=== PATIENT | female | born 1990 | race Caucasian/White ===

== ENCOUNTER 2017-08-13 17:08 | Emergency (ER) | payer OTHER ==
[~2017-08-13] VITALS: Ht 162.6 cm; Wt 99.8 kg
[~2017-08-13 17:08] MED LIST: ACEBUTCAFT; ALBU90OI INH; AMOX500 PO; ANTIEMETIC; Acetaminophen-1 EAC1 PO; Augmentin 875-1 EACH PO; BCP; BCP'S; BIRTH CONTROL; CEPH500 PO; CIPR250 PO; CIPRO500 MG PO; CITA20 PO; CODGUAEL PO; CYCL10 PO; Cipro500 MG PO; FISH OIL; FISH1000 PO; FLINTSTONE VITAMINS PO; FOLI1 PO; Flomax0.4 MG PO; Flonase 0.05% N16 GM; HYDACE5 PO; LABE100 PO; LEVFLO250 PO; META800 PO; MULVITMINE PO; NAPR220; NAPR550 PO; NORINYL; Norco 5-325 Ta1 EACH PO; OXYACE5T PO; PHENA100 PO; PHENA200 PO; PRED20 PO; PROM25 PO; Percocet 5-3251 EACH PO; Pyridium100 MG PO; Pyridium200 MG PO; SULTRIDS PO; Seasonique 0.11 EACH PO; Sudogest30 MG PO; Zofran Odt4 MG SL; [UNRECOGNIZED DRUG - CODE]; [UNRECOGNIZED DRUG - OTHER]
[2017-08-13] MEDS ORDERED: PROM25 PO (19:07)
== END 2017-08-13 19:15 | disposition home or self-care (01) ==
LOC: ER 17:08
DX: R51 Headache (principal); Z88.2 Allergy status to sulfonamides; Z88.8 Allergy status to other drugs, medicaments and biological substances; Z91.048 Other nonmedicinal substance allergy status; F17.210 Nicotine dependence, cigarettes, uncomplicated
CPT/HCPCS: 70450; 96372; 99284; J0780; J1200; J1885

== ENCOUNTER → 2019-06-01 | Outpatient (CLI) | payer OTHER ==
[2019-06-01 16:51] LABS: U Amphetamine Screen DETECTED; U Barbituate Screen Not Detected; U Benzodiazapine Screen Not Detected; U Buprenorphine Screen Not Detected; U Cannabinoids Screen Not Detected; U Cocaine Screen Not Detected; U Methadone Screen Not Detected; U Methamphetamine Screen Not Detected; U Opiates Screen Not Detected; U Oxycodone Screen Not Detected; U Propoxyphene Screen Not Detected
== END ==
LOC: OLS 15:10 → LAB SHORT 15:10
PROVIDERS: Nurse Practitioner Psychiatric/Mental Health
DX: F90.2 Attention-deficit hyperactivity disorder, combined type (principal)

== ENCOUNTER → 2019-12-14 | Outpatient (CLI) | payer OTHER ==
[~2019-12-14] MED LIST changes: +AMPDEX30CR PO; +BUPR75 PO; +TAMS.4ER PO; +TOPI100 PO
[2019-12-14 13:50] LABS: U Amphetamine Screen DETECTED; U Barbituate Screen Not Detected; U Benzodiazapine Screen Not Detected; U Buprenorphine Screen Not Detected; U Cannabinoids Screen Not Detected; U Cocaine Screen Not Detected; U Methadone Screen Not Detected; U Methamphetamine Screen Not Detected; U Opiates Screen Not Detected; U Oxycodone Screen Not Detected; U Phencyclidine Screen Not Detected; U Propoxyphene Screen Not Detected
== END | disposition home or self-care (01) ==
LOC: OLS 12:43 → LAB SHORT 12:43
PROVIDERS: Nurse Practitioner Psychiatric/Mental Health
DX: F90.0 Attention-deficit hyperactivity disorder, predominantly inattentive type (principal)

== ENCOUNTER → 2019-12-21 | Outpatient (CLI) | payer OTHER ==
[2019-12-21 17:38] LABS: Source, Urine Clean Catch
[2019-12-21 18:28] LABS: Appearance, Urine Clear (Clear); Bilirubin, Urine Neg (Neg); Blood, Urine Neg (Neg); Color, Urine Yellow (P-Yellow); Glucose Qualitative, Urine Neg (Neg); Ketones, Urine Neg (Neg); Leukocyte Esterase, Urine Neg (Neg); Nitrite, Urine Neg (Neg); Protein, Urine Neg (Neg); Specific Gravity, Urine 1.015 (1.003-1.022); Urobilinogen, Urine NORM (Normal)
== END | disposition home or self-care (01) ==
LOC: LAB SHORT 17:36 → LAB 17:36
PROVIDERS: Nurse Practitioner Family
DX: N20.1 Calculus of ureter (principal); R30.0 Dysuria
CPT/HCPCS: 81003

== ENCOUNTER 2022-05-24 11:35 | Day surgery (SDC) | payer OTHER ==
[~2022-05-24] VITALS: Ht 162.6 cm; Wt 83.5 kg
[2022-05-24] MEDS ORDERED: ESZO1 PO (12:19)
[2022-05-24] MEDS ORDERED: SUMA25 PO (12:19)
--- NOTE | 2022-05-24 16:26 | NUR ---
05/24/22 1626 Nolberto Pratt PT REPORTED 5/10 PAIN PRIOR TO DISCHARGE. HOWEVER, SHE STATED PAIN WAS AT A TOLERABLE LEVEL FOR RETURNING HOME AND REFUSED FURTHER PAIN MEDICATION.
== END 2022-05-24 16:17 | disposition home or self-care (01) ==
LOC: ORSCSDS 11:35
PROVIDERS: Orthopaedic Surgery
PROC: 0LN50ZZ Release Right Lower Arm and Wrist Tendon, Open Approach (ICD-10-PCS; principal; 2022-05-24 13:00)
DX: M65.4 Radial styloid tenosynovitis [de Quervain] (principal); Z87.891 Personal history of nicotine dependence; Z86.16 Personal history of COVID-19; F90.9 Attention-deficit hyperactivity disorder, unspecified type; F32.A Depression, unspecified; Z79.899 Other long term (current) drug therapy
CPT/HCPCS: A9270; J0690; J1100; J1885; J2001; J2405; J2704; J2795; J3010; J7120

== ENCOUNTER → 2023-10-21 | Outpatient (CLI) | payer OTHER ==
[~2023-10-21] MED LIST changes: +ESZO1 PO; +SUMA25 PO
== END ==
LOC: LAB SHORT 18:15 → LAB 18:15
DX: R30.0 Dysuria (principal)
CPT/HCPCS: 87077; 87086; 87186

== ENCOUNTER 2024-01-10 21:53 | Emergency (ER) | payer OTHER ==
[~2024-01-10] VITALS: Ht 162.6 cm; Wt 90.7 kg
[2024-01-10] MEDS ORDERED: Ondansetron HCl 2 MG / ML 2ML Vial IV ONE (22:15)
[2024-01-10] MEDS ORDERED: Ketorolac Tromethamine 30mg Vial IV ONE (22:15)
[2024-01-10 22:41] LABS: BASOPHILS ABSOLUTE AUTO 0.07 K/mm3 (0.00-0.23); BASOPHILS PERCENT AUTO 1 % (0-2); EOSINOPHILS ABSOLUTE AUTO 0.09 K/mm3 (0.00-0.68); EOSINOPHILS PERCENT AUTO 1 % (0-6); Hematocrit 42.7 % (33.0-51.0); Hemoglobin 14.8 g/dL (11.5-16.0); IMMATURE GRAN ABSOLUTE AUTO 0.03 K/mm3 (0.00-0.10); IMMATURE GRAN PERCENT AUTO 0 % (0-1); LYMPHOCYTES ABSOLUTE AUTO 3.25 K/mm3 (0.84-5.20); LYMPHOCYTES PERCENT AUTO 35 % (21-46); MONOCYTES ABSOLUTE AUTO 0.68 K/mm3 (0.16-1.47); MONOCYTES PERCENT AUTO 7 % (4-13); Mean Corpuscular HGB 30.8 pg (26.0-34.0); Mean Corpuscular HGB Conc 34.7 g/dL (31.5-36.5); Mean Corpuscular Volume 89 fL (80-100); Mean Platelet Volume 9.3 fL (9.1-12.4); NEUTROPHILS ABSOLUTE AUTO 5.15 K/mm3 (1.96-9.15); NEUTROPHILS PERCENT AUTO 56 % (41-73); Platelet Count 308 K/mm3 (150-400); RDW Standard Deviation 39.4 fL (35.1-46.3); White Blood Cell Count 9.27 K/mm3 (4.00-11.30)
[2024-01-10 22:52] LABS: Source, Urine Clean Catch
[2024-01-10 22:55] LABS: Appearance, Urine Hazy (Clear); Bilirubin, Urine Neg (Neg); Blood, Urine Neg (Neg); Color, Urine Yellow (P-Yellow); Glucose Qualitative, Urine Neg (Neg); Ketones, Urine Neg (Neg); Leukocyte Esterase, Urine 2+ (Neg); Nitrite, Urine Neg (Neg); Protein, Urine Neg (Neg); Specific Gravity, Urine 1.015 (1.003-1.022); Urobilinogen, Urine NORM (Normal); pH, Urine 6.5 (5.0-8.0)
[2024-01-10 23:06] LABS: Amorphous Mod (0-Heavy); Bacteria Mod /hpf; Red Blood Cells, Urine 0-2 /hpf (0-2); Squamous Epithelial Cells Mod /hpf (Few)
[2024-01-10 23:09] LABS: Albumin, Blood 3.7 g/dL (3.4-5.0); Albumin/Globulin Ratio 1.1 (0.8-1.8); Bilirubin, Total 0.3 mg/dL (0.1-1.0); Bun/Creatinine Ratio 17.4 (12.0-20.0); Calcium, Blood 8.9 mg/dL (8.5-10.1); Creatinine, Blood 0.86 mg/dL (0.40-1.00); Globulin, Blood 3.3 g/dL (2.2-4.0); Potassium, Blood 3.5 mmol/L (3.5-5.5)
[2024-01-11] MEDS ORDERED: Ondansetron HCl 2 MG / ML 2ML Vial IV ONE (00:05)
[2024-01-11] MEDS ORDERED: Ondansetron HCl 2 MG / ML 2ML Vial ONE (00:05)
[2024-01-11] MEDS ORDERED: RX Prepack 2 Tabs Ondansetron ODT 4MG UD ONE (02:30)
[2024-01-11] MEDS ORDERED: NITR100CA PO (02:33)
[2024-01-11] MEDS ORDERED: ONDA4ODT MM (02:33)
[2024-01-11 02:45] VITALS: BP 117/78
== END 2024-01-11 02:46 | disposition home or self-care (01) ==
LOC: ER 21:53
PROVIDERS: Physician Assistant
DX: N83.201 Unspecified ovarian cyst, right side (principal); N39.0 Urinary tract infection, site not specified; G43.909 Migraine, unspecified, not intractable, without status migrainosus; F17.210 Nicotine dependence, cigarettes, uncomplicated; Z79.899 Other long term (current) drug therapy; Z88.1 Allergy status to other antibiotic agents; Z91.048 Other nonmedicinal substance allergy status
CPT/HCPCS: 74177; 80053; 81001; 81025; 85025; 87077; 87086; 87186; 96374-59; 96375; 96376; 99284-25; A9270; J1885; J2405; Q9967

== ENCOUNTER 2024-06-07 17:23 | Emergency (ER) | payer OTHER ==
[~2024-06-07] VITALS: Ht 162.6 cm; Wt 91.2 kg
[~2024-06-07 17:23] MED LIST changes: +NITR100CA PO; +ONDA4ODT MM
[2024-06-07 17:57] LABS: Source, Urine Clean Catch
[2024-06-07 18:02] LABS: Appearance, Urine Clear (Clear); Bilirubin, Urine Neg (Neg); Blood, Urine Neg (Neg); Color, Urine Yellow (P-Yellow); Glucose Qualitative, Urine Neg (Neg); Ketones, Urine Neg (Neg); Leukocyte Esterase, Urine Neg (Neg); Nitrite, Urine Neg (Neg); Protein, Urine Neg (Neg); Specific Gravity, Urine 1.015 (1.003-1.022); Urobilinogen, Urine NORM (Normal); pH, Urine 6.5 (5.0-8.0)
[2024-06-07 18:38] LABS: BASOPHILS ABSOLUTE AUTO 0.07 K/mm3 (0.00-0.23); BASOPHILS PERCENT AUTO 1 % (0-2); EOSINOPHILS ABSOLUTE AUTO 0.08 K/mm3 (0.00-0.68); EOSINOPHILS PERCENT AUTO 1 % (0-6); Hematocrit 44.1 % (33.0-51.0); Hemoglobin 15.3 g/dL (11.5-16.0); IMMATURE GRAN ABSOLUTE AUTO 0.03 K/mm3 (0.00-0.10); IMMATURE GRAN PERCENT AUTO 0 % (0-1); LYMPHOCYTES ABSOLUTE AUTO 2.06 K/mm3 (0.84-5.20); LYMPHOCYTES PERCENT AUTO 22 % (21-46); MONOCYTES ABSOLUTE AUTO 0.58 K/mm3 (0.16-1.47); MONOCYTES PERCENT AUTO 6 % (4-13); Mean Corpuscular HGB 31.1 pg (26.0-34.0); Mean Corpuscular HGB Conc 34.7 g/dL (31.5-36.5); Mean Corpuscular Volume 90 fL (80-100); Mean Platelet Volume 9.4 fL (9.1-12.4); NEUTROPHILS ABSOLUTE AUTO 6.54 K/mm3 (1.96-9.15); NEUTROPHILS PERCENT AUTO 70 % (41-73); Platelet Count 313 K/mm3 (150-400); RDW Coefficient Variation 11.8 % (11.7-14.2); RDW Standard Deviation 38.6 fL (35.1-46.3); Red Blood Cell Count 4.92 M/mm3 (3.80-5.20); White Blood Cell Count 9.36 K/mm3 (4.00-11.30)
[2024-06-07 19:10] LABS: Albumin, Blood 3.9 g/dL (3.4-5.0); Albumin/Globulin Ratio 1.1 (0.8-1.8); Bilirubin, Total 0.4 mg/dL (0.1-1.0); Bun/Creatinine Ratio 16.5 (12.0-20.0); Calcium, Blood 9.5 mg/dL (8.5-10.1); Creatinine, Blood 0.79 mg/dL (0.40-1.00); Globulin, Blood 3.6 g/dL (2.2-4.0); Total Protein, Blood 7.5 g/dL (6.4-8.2)
[2024-06-07] MEDS ORDERED: Acetaminophen 500 MG Tab PO ONE (20:40)
[2024-06-07] MEDS ORDERED: Topiramate 100 MG Tab PO ONE (20:40)
[2024-06-07] MEDS ORDERED: Ketorolac Tromethamine 15mg Vial IV ONE (20:40)
[2024-06-07 21:45] VITALS: BP 123/86
== END 2024-06-07 22:17 | disposition home or self-care (01) ==
LOC: ER 17:23
PROVIDERS: Physician Assistant
DX: R10.31 Right lower quadrant pain (principal); F17.210 Nicotine dependence, cigarettes, uncomplicated; G40.909 Epilepsy, unspecified, not intractable, without status epilepticus; Z88.2 Allergy status to sulfonamides; Z91.018 Allergy to other foods; Z79.899 Other long term (current) drug therapy; Z79.634 Long term (current) use of topoisomerase inhibitor; Z79.811 Long term (current) use of aromatase inhibitors; Z79.1 Long term (current) use of non-steroidal anti-inflammatories (NSAID); Z79.620 Long term (current) use of immunosuppressive biologic; Z79.83 Long term (current) use of bisphosphonates
CPT/HCPCS: 74177; 76857; 80053; 81003; 83605; 84703; 85025; 96374-59; 99284-25; A9270; J1885; Q9967